=== PATIENT | male | born 1960 | race Caucasian/White ===

== ENCOUNTER 2020-02-14 00:43 | Emergency (ER) | payer MEDICAID ==
[~2020-02-14] VITALS: Ht 175.3 cm; Wt 72.6 kg
--- NOTE | 2020-02-14 00:45 | NUR ---
ED Nurse Note: Patient brought in by ambulance RA26 from [place] with c/o sp seizure. Per EMS cause, characteristic and duration is unknown. Seizure is unwitnessed. Patient is non compliant with maintenance meds. Patient came with a bleeding nose; cause is unknown. Patient is AAOx4 and placed on a monitor bed.
[2020-02-14 00:50] VITALS: BP 140/80
--- NOTE | 2020-02-14 00:50 | NUR ---
ED Nurse Note: ERMD at bedside
--- NOTE | 2020-02-14 00:55 | Emergency Room Report ---
History of Present Illness General Chief Complaint: Seizure Source: Patient, EMS Present Illness HPI Is a 59-year-old male who is homeless. He has a history of seizure. He presents with seizure. He said he was sitting down and fell forward. He said he hit his head. He said he had a seizure. Now shaky and bystander called 911. He said that he has not taken his medication for a week. He does not remember the name. He has injury to his face and has incontinence of his urine. No other injury. Denies any alcohol or drug use. Allergies: Coded Allergies: No Known Allergies (Unverified , 02/14/20) COVID-19 Screening Contact w/high risk pt: No Experienced COVID-19 symptoms?: No COVID-19 Testing performed [employer]: No Patient History Past Medical History: see triage record, old chart reviewed Past Surgical History: none Pertinent Family History: none Social History: Denies: smoking Immunizations: other Reviewed Nursing Documentation: PMH: Agreed; PSxH: Agreed Nursing Documentation-PMH Hx Hypertension: Yes Hx Seizures: Yes Review of Systems Eye: Denies: eye pain, blurred vision ENT: Denies: ear pain, nose congestion, throat swelling Respiratory: Denies: cough, shortness of breath Cardiovascular: Denies: chest pain, palpitations Gastrointestinal: Denies: abdominal pain, diarrhea, nausea, vomiting Musculoskeletal: Denies: back pain, joint pain Skin: Denies: rash Neurological: Denies: headache, numbness Endocrine: Denies: increased thirst, increased urine Hematologic/Lymphatic: Denies: easy bruising All Other Systems: negative except mentioned in HPI Physical Exam Vital Signs Date Time Temp Pulse Resp B/P (MAP) Pulse Ox O2 Delivery O2 Flow Rate FiO2 02/14/20 00:45 98.8 90 14 140/80 (100) 98 Room Air Vitals unremarkable Sp02 EP Interpretation: reviewed, normal General Appearance: well appearing, no apparent distress, alert Head: normocephalic, other - Abrasion and nosebleed. No septal hematoma Eyes: bilateral eye PERRL, bilateral eye EOMI ENT: hearing grossly normal, normal pharynx Neck: full range of motion, supple, no meningismus Respiratory: chest non-tender, lungs clear, normal breath sounds Cardiovascular #1: regular rate, rhythm, no murmur Gastrointestinal: normal bowel sounds, non tender, no mass, no organomegaly, no bruit, non-distended Musculoskeletal: back normal, normal range of motion, gait/station normal Neurologic: other - Tremulous Psychiatric: mood/affect normal Medical Decision Making Diagnostic Impression: Primary Impression: Epileptic seizure, generalized Additional Impression: Head injury, acute Qualified Codes: S09.90XA - Unspecified injury of head, initial encounter ER Course Patient presents with head injury status post seizure. He is at baseline. No evidence of any intracranial bleed. Will discharge home. CT/MRI/US Diagnostic Results CT/MRI/US Diagnostic Results : Imaging Test Ordered: CT head Impression Negative per radiologist Last Vital Signs Date Time Temp Pulse Resp B/P (MAP) Pulse Ox O2 Delivery O2 Flow Rate FiO2 02/14/20 00:45 98.8 90 14 140/80 (100) 98 Room Air Status: improved Disposition: HOME, SELF-CARE Condition: Stable Scripts Levetiracetam (KEPPRA) 500 Mg Tablet 500 MG ORAL EVERY 12 HOURS, #60 TAB 0 Refills Prov: Ortiz Ibanez MD 02/14/20 Patient Instructions: Seizure, Adult Additional Instructions: Follow-up with your doctor in 7 days. Take your seizure medication. Return if worse. Ortiz Ibanez MD Feb 14, 2020 00:55
[2020-02-14] MEDS ORDERED: levETIRAcetam 500mg/NS100ml 100 ML IVPB ONE (01:00)
[2020-02-14] MEDS ORDERED: LORazepam Inj 2mg/ml 1ml IV ONE (01:00)
--- NOTE | 2020-02-14 01:30 | NUR ---
ED Nurse Note: IV meds given. No episodes of seizure noted as of the moment
--- NOTE | 2020-02-14 01:59 | Diagnostic Imaging Report ---
EXAM: CT Head Without Intravenous Contrast CLINICAL HISTORY: TRAUMA TECHNIQUE: Axial computed tomography images of the head/brain without intravenous contrast. CTDI is 53 mGy and DLP is 1126 mGy-cm. One or more of the following dose reduction techniques were used: automated exposure control, adjustment of the mA and/or kV according to patient size, use of iterative reconstruction technique. COMPARISON: No relevant prior studies available. FINDINGS: Brain: Unremarkable. No hemorrhage. No significant white matter disease. No edema. Ventricles: Unremarkable. No ventriculomegaly. Bones/joints: Unremarkable. No acute fracture. Soft tissues: Unremarkable. Sinuses: Scattered ethmoidal air cell opacification could represent sinusitis. Mastoid air cells: Unremarkable as visualized. No mastoid effusion. IMPRESSION: 1. No acute intracranial abnormality. 2. Scattered ethmoidal air cell opacification could represent sinusitis. 3. Otherwise unremarkable study.
[2020-02-14 02:16] LABS: BASOPHILS % (AUTO) 0.7 % (0.0-2.0); EOSINOPHILS % (AUTO) 1.4 % (0.0-3.0); HEMATOCRIT 46.8 % (42.0-52.0); HEMOGLOBIN 16.2 G/DL (14.2-18.0); LYMPHOCYTES % (AUTO) 18.1 % (20.0-45.0); MEAN CORPUSCULAR VOLUME 98 FL (80-99); MONOCYTES % (AUTO) 9.6 % (1.0-10.0); NEUTROPHILS % (AUTO) 70.3 % (45.0-75.0); PLATELET COUNT 180 K/UL (150-450); RED BLOOD COUNT 4.79 M/UL (4.70-6.10); RED CELL DISTRIBUTION WIDTH 11.9 % (11.6-14.8); WHITE BLOOD COUNT 10.6 K/UL (4.8-10.8)
[2020-02-14 02:25] LABS: ANION GAP 14 mmol/L (5-15); BLOOD UREA NITROGEN 18 mg/dL (7-18); CALCIUM 8.8 MG/DL (8.5-10.1); CARBON DIOXIDE 23 MMOL/L (21-32); CHLORIDE 102 MMOL/L (98-107); CREATININE 0.9 MG/DL (0.55-1.30); POTASSIUM 3.4 MMOL/L (3.5-5.1); SODIUM 139 MMOL/L (136-145)
[2020-02-14 02:35] LABS: ALANINE AMINOTRANSFERASE 47 U/L (12-78); ALBUMIN 4.3 G/DL (3.4-5.0); ALBUMIN/GLOBULIN RATIO 1.4 (1.0-2.7); ALKALINE PHOSPHATASE 70 U/L (46-116); ASPARTATE AMINO TRANSFERASE 106 U/L (15-37); BILIRUBIN,TOTAL 1.5 MG/DL (0.2-1.0)
[2020-02-14 03:00] VITALS: BP 136/76
--- NOTE | 2020-02-14 03:00 | NUR ---
ED Nurse Note: Patient is comfortably resting on the bed. VSS as documented
[2020-02-14] MEDS ORDERED: KEPPRA500 M4 ORAL (03:22)
[2020-02-14 03:44] LABS: BILIRUBIN,DIRECT 0.5 MG/DL (0.0-0.3)
--- NOTE | 2020-02-14 05:05 | NUR ---
ER DISCHARGE NOTE: Patient is cleared to be discharged per ERMD, pt is aox4, on room air, with stable vital signs. pt was given dc and prescription instructions, pt was able to verbalize understanding, pt id band and iv site removed without complications. pt is able to ambulate with steady gait and was accompanied in the waiting room. pt took all belongings. Patient provided with food and drinks.
[2020-02-14 05:10] VITALS: BP 138/78
== END 2020-02-14 05:00 | disposition home or self-care (01) ==
LOC: EDBD 00:43 → EMR 00:57
DX: G40.909 Epilepsy, unspecified, not intractable, without status epilepticus (principal); S09.90XA Unspecified injury of head, initial encounter; W22.8XXA Striking against or struck by other objects, initial encounter; Y92.9 Unspecified place or not applicable; I10 Essential (primary) hypertension
CPT/HCPCS: 70450; 80053; 82248; 85025; 96374; 96375; G0480; J1953; Z7502; 99284